=== PATIENT | male | born 1945 | race African-American/Black ===

== ENCOUNTER 2019-07-03 20:51 | Emergency (ER) | payer MEDICARE ==
[~2019-07-03] VITALS: Ht 177.8 cm; Wt 57.0 kg
[2019-07-03] MEDS ORDERED: PREDNISONE 20MG TABLET PO STA (23:16)
[2019-07-03] MEDS ORDERED: IPRATROPIUM BROMIDE (0.02%) 0.5MG/2.5ML NEB HHN STA (23:16)
[2019-07-03] MEDS ORDERED: ALBUTEROL (0.083%) 2.5MG/3ML NEB HHN STA (23:16)
[2019-07-04 00:20] LABS: *BENZODIAZEPINES SCREEN URINE NEGATIVE (NEGATIVE); *COCAINE SCREEN URINE PRESUMTIVE POSITIVE (NEGATIVE)
[2019-07-04 00:21] LABS: *AMPHETAMINES SCREEN URINE NEGATIVE (NEGATIVE); *BARBITURATES SCREEN URINE NEGATIVE (NEGATIVE); CANNABINOID URINE SCREEN NEGATIVE (NEGATIVE); METHADONE URINE SCREEN NEGATIVE (NEGATIVE); OPIATES URINE SCREEN NEGATIVE (NEGATIVE); PHENCYCLIDINE URINE SCREEN NEGATIVE (NEGATIVE)
[2019-07-04 00:23] LABS: BASOPHILS % 1.3 % (0.0-2.0); EOSINOPHILS % 1.1 % (0.0-5.0); HEMATOCRIT. 30.8 % (42.0-52.0); HEMOGLOBIN. 10.1 g/dL (14.0-18.0); LYMPHOCYTES % 17.2 % (20.0-50.0); MEAN CORPUSCULAR HEMOGLOBIN 26.4 pg (28.0-32.0); MEAN CORPUSCULAR VOLUME 80.8 fL (80.0-94.0); MEAN PLATELET VOLUME 8.2 fl (7.4-10.4); MONOCYTES % 11.9 % (2.0-8.0); NEUTROPHILS % 68.5 % (40.0-76.0); PLATELET 240 x1000/uL (130-400); RED BLOOD CELL COUNT 3.81 mill/uL (4.7-6.1); RED CELL DISTRIBUTION WIDTH 21.1 % (11.6-14.6)
[2019-07-04 00:31] LABS: CHLORIDE 106 mEq/L (98-107)
[2019-07-04 07:13] VITALS: BP 147/72
== END 2019-07-04 07:15 | disposition short-term general hospital (02) ==
LOC: ER 20:51 → CANBEDREQ 07-04 08:09
DX: J44.9 Chronic obstructive pulmonary disease, unspecified (principal); I10 Essential (primary) hypertension; F17.210 Nicotine dependence, cigarettes, uncomplicated
CPT/HCPCS: 36415; 71045; 80053; 80305; 83605; 83880; 84484; 85025; 87040; 93005; 94640; 99291; J7512; J7611

== ENCOUNTER 2019-12-28 14:07 | Emergency (ER) | payer MEDICARE ==
[~2019-12-28] VITALS: Ht 177.8 cm; Wt 77.0 kg
[2019-12-28] MEDS ORDERED: ONDANSETRON HCL 4MG/2ML INJ IV STA (15:47)
[2019-12-28] MEDS ORDERED: MORPHINE SULFATE 4 MG/ML CPJ (NOT FOR IM USE) IV STA (15:47)
[2019-12-28] MEDS ORDERED: NITROGLYCERIN OINT 1GM/INCH UDPKT TD ONE (16:00)
[2019-12-28 16:09] LABS: BASOPHILS % 1.8 % (0.0-2.0); EOSINOPHILS % 0.8 % (0.0-5.0); HEMATOCRIT. 30.2 % (42.0-52.0); LYMPHOCYTES % 17.9 % (20.0-50.0); MEAN CORPUSCULAR HEMOGLOBIN 25.5 pg (28.0-32.0); MEAN CORPUSCULAR VOLUME 77.4 fL (80.0-94.0); MEAN PLATELET VOLUME 7.6 fl (7.4-10.4); MONOCYTES % 10.6 % (2.0-8.0); NEUTROPHILS % 68.9 % (40.0-76.0); PLATELET 296 x1000/uL (130-400); RED BLOOD CELL COUNT 3.91 mill/uL (4.7-6.1); RED CELL DISTRIBUTION WIDTH 20.5 % (11.6-14.6)
[2019-12-28 16:10] LABS: CHLORIDE 104 mEq/L (98-107)
[2019-12-28 16:14] LABS: ETHANOL BLOOD < 10 mg/dL
[2019-12-28 19:30] VITALS: BP 144/78
== END 2019-12-28 22:30 | disposition short-term general hospital (02) ==
LOC: ER 14:07 → EDBEDREQ 17:55 → ER 22:30 → ENRESERV 23:50 → CANRESERV 23:50 → CANBEDREQ 12-29 02:05
DX: R07.89 Other chest pain (principal); I11.9 Hypertensive heart disease without heart failure; J44.9 Chronic obstructive pulmonary disease, unspecified; E78.00 Pure hypercholesterolemia, unspecified; I25.2 Old myocardial infarction; Z98.61 Coronary angioplasty status; Z87.891 Personal history of nicotine dependence
CPT/HCPCS: 36415; 71045; 80053; 80320; 83690; 83880; 84484; 85025; 93005; 96374; 96375; 99285; J2270; J2405; G0480

== ENCOUNTER 2020-02-08 11:24 | Inpatient (IN) | payer MEDICAID, MEDICARE ==
[~2020-02-08] VITALS: Ht 177.8 cm; Wt 54.4 kg
[2020-02-08] MEDS ORDERED: NITROGLYCERIN 0.4MG TABLET SL SL PRN (12:00)
[2020-02-08] MEDS ORDERED: ASPIRIN 81MG TABLET PO ONE (12:00)
[2020-02-08 12:15] LABS: BASOPHILS % 1.6 % (0.0-2.0); EOSINOPHILS % 2.1 % (0.0-5.0); HEMATOCRIT. 31.6 % (42.0-52.0); HEMOGLOBIN. 10.5 g/dL (14.0-18.0); LYMPHOCYTES % 25.3 % (20.0-50.0); MEAN CORPUSCULAR HEMOGLOBIN 26.5 pg (28.0-32.0); MEAN CORPUSCULAR VOLUME 79.9 fL (80.0-94.0); MEAN PLATELET VOLUME 7.6 fl (7.4-10.4); PLATELET 270 x1000/uL (130-400); RED BLOOD CELL COUNT 3.95 mill/uL (4.7-6.1); RED CELL DISTRIBUTION WIDTH 19.7 % (11.6-14.6)
[2020-02-08 12:16] LABS: CHLORIDE 106 mEq/L (98-107)
[2020-02-08 12:21] LABS: D-DIMER 0.71 mg/L FEU (<0.50); INR 0.9; PARTIAL THROMBOPLASTIN TIME 29.4 sec (23.4-31.0); PROTHROMBIN TIME 10.3 sec (9.6-11.0)
[2020-02-08] MEDS ORDERED: CLONIDINE 0.1MG TABLET PO PRN (13:15)
[2020-02-08] MEDS ORDERED: ACETAMINOPHEN 325MG TABLET PO PRN (13:15)
[2020-02-08 13:33] LABS: PHOSPHORUS 3.3 mg/dL (2.5-4.9)
[2020-02-08] MEDS ORDERED: IOHEXOL-350 100 ML BOTTLE ONE (13:37)
[2020-02-08 15:00] VITALS: BP_SYST 180; BP_SYST 184; BP_DIAS 80
[2020-02-08 16:00] VITALS: BP 184/80
[2020-02-08] MEDS: ENOXAPARIN 30MG/0.3ML SYR SUBCUT SCH (16:23)
[2020-02-08] MEDS: MORPHINE SULFATE 2 MG/ML CPJ (NOT FOR IM USE) IV PRN (17:01)
[2020-02-08 17:11] LABS: TOTAL IRON BINDING CAPACITY 397 ug/dL (250-450)
[2020-02-08 17:26] VITALS: BP 143/70
[2020-02-08 20:00] VITALS: BP 127/67
[2020-02-09] VITALS: BP 136/65
[2020-02-09 04:00] VITALS: BP 119/61
[2020-02-09 06:47] LABS: CHLORIDE 104 mEq/L (98-107)
[2020-02-09 06:48] LABS: BASOPHILS % 1.6 % (0.0-2.0); EOSINOPHILS % 2.2 % (0.0-5.0); HEMATOCRIT. 29.4 % (42.0-52.0); HEMOGLOBIN. 9.6 g/dL (14.0-18.0); LYMPHOCYTES % 19.1 % (20.0-50.0); MEAN CORPUSCULAR HEMOGLOBIN 25.7 pg (28.0-32.0); MEAN CORPUSCULAR VOLUME 78.6 fL (80.0-94.0); MEAN PLATELET VOLUME 7.7 fl (7.4-10.4); MONOCYTES % 12.5 % (2.0-8.0); NEUTROPHILS % 64.6 % (40.0-76.0); PLATELET 257 x1000/uL (130-400); RED BLOOD CELL COUNT 3.74 mill/uL (4.7-6.1); RED CELL DISTRIBUTION WIDTH 19.4 % (11.6-14.6)
[2020-02-09 07:00] LABS: HDL CHOLESTEROL 57 mg/dL (40-59); LDL CHOLESTEROL 66 mg/dL (5-100)
[2020-02-09 08:00] VITALS: BP 159/72
[2020-02-09 12:00] VITALS: BP 169/71
[2020-02-09] MEDS: CLOPIDOGREL 75MG TABLET PO SCH (12:32)
[2020-02-09] MEDS: ONDANSETRON HCL 4MG/2ML INJ IV PRN (12:45)
[2020-02-09] MEDS: MORPHINE SULFATE 2 MG/ML CPJ (NOT FOR IM USE) IV PRN (12:45)
[2020-02-09] MEDS: DILTIAZEM HCL 30MG TABLET PO SCH ×2 (13:11→21:24)
[2020-02-09 16:00] VITALS: BP 147/63
[2020-02-09] MEDS: ENOXAPARIN 30MG/0.3ML SYR SUBCUT SCH (16:46)
[2020-02-09 20:00] VITALS: BP 122/62
[2020-02-09] MEDS: ATORVASTATIN CALCIUM 20MG TABLET PO SCH (20:54)
[2020-02-09] MEDS: OMEPRAZOLE 20MG CAPSULE EXTENDED RELEASE PO SCH (20:54)
[2020-02-09] MEDS: MORPHINE SULFATE 4 MG/ML CPJ (NOT FOR IM USE) IV PRN (20:55)
[2020-02-10] VITALS: BP 125/61
[2020-02-10 04:00] VITALS: BP 119/58
[2020-02-10] MEDS: DILTIAZEM HCL 30MG TABLET PO SCH ×3 (06:00→21:30)
[2020-02-10] MEDS: OMEPRAZOLE 20MG CAPSULE EXTENDED RELEASE PO SCH (06:08)
[2020-02-10] MEDS: MORPHINE SULFATE 4 MG/ML CPJ (NOT FOR IM USE) IV PRN ×2 (06:13→16:58)
[2020-02-10 07:37] LABS: BASOPHILS % 1.7 % (0.0-2.0); EOSINOPHILS % 2.8 % (0.0-5.0); HEMOGLOBIN. 10.5 g/dL (14.0-18.0); LYMPHOCYTES % 22.9 % (20.0-50.0); MEAN CORPUSCULAR HEMOGLOBIN 25.9 pg (28.0-32.0); MEAN CORPUSCULAR VOLUME 78.5 fL (80.0-94.0); MEAN PLATELET VOLUME 7.6 fl (7.4-10.4); MONOCYTES % 14.2 % (2.0-8.0); NEUTROPHILS % 58.4 % (40.0-76.0); PLATELET 269 x1000/uL (130-400); RED BLOOD CELL COUNT 4.07 mill/uL (4.7-6.1); RED CELL DISTRIBUTION WIDTH 19.1 % (11.6-14.6)
[2020-02-10 07:39] LABS: CHLORIDE 100 mEq/L (98-107)
[2020-02-10 08:00] VITALS: BP 112/63
[2020-02-10] MEDS: CLOPIDOGREL 75MG TABLET PO SCH (09:54)
[2020-02-10 12:00] VITALS: BP 115/58
[2020-02-10 16:00] VITALS: BP 133/59
[2020-02-10] MEDS: ENOXAPARIN 30MG/0.3ML SYR SUBCUT SCH (16:50)
[2020-02-10 20:00] VITALS: BP 122/54
[2020-02-10] MEDS: ATORVASTATIN CALCIUM 20MG TABLET PO SCH (21:30)
[2020-02-11] VITALS: BP 113/58
[2020-02-11 04:00] VITALS: BP 115/53
[2020-02-11] MEDS: DILTIAZEM HCL 30MG TABLET PO SCH ×2 (05:27→13:36)
[2020-02-11 08:00] VITALS: BP 124/54
[2020-02-11] MEDS: CLOPIDOGREL 75MG TABLET PO SCH (08:04)
[2020-02-11] MEDS: MORPHINE SULFATE 4 MG/ML CPJ (NOT FOR IM USE) IV PRN ×2 (08:05→14:58)
[2020-02-11] MEDS: ONDANSETRON HCL 4MG/2ML INJ IV PRN (08:13)
[2020-02-11] MEDS ORDERED: FAMOTIDINE 20MG TABLET PO SCH (09:00)
[2020-02-11 12:00] VITALS: BP 128/49
[2020-02-11] MEDS ORDERED: FAMO20TA8 PO (12:20)
[2020-02-11] MEDS ORDERED: CARSR90 MT ×2 (12:20→16:06)
[2020-02-11] MEDS ORDERED: ATOR20TA PO (12:20)
[2020-02-11] MEDS ORDERED: CLOP75TA15 PO (12:20)
[2020-02-11] MEDS: ENOXAPARIN 30MG/0.3ML SYR SUBCUT SCH (15:00)
[2020-02-11 15:58] VITALS: BP 124/65
[2020-02-11 16:00] VITALS: BP 124/65
[2020-02-11] MEDS ORDERED: ATOR20TA MT (16:06)
[2020-02-11] MEDS ORDERED: CLOP75TA4 MT (16:06)
[2020-02-11] MEDS ORDERED: FAMO20TA8 MT (16:06)
== END 2020-02-11 17:00 | disposition home or self-care (01) | DRG 198 ==
LOC: ER 11:24 → 5WST 12:56 → ENRESERV 13:39
PROVIDERS: ADMIT Internal Medicine; ATTEND Internal Medicine
DX: I25.10 Atherosclerotic heart disease of native coronary artery without angina pectoris (principal); E44.0 Moderate protein-calorie malnutrition; I27.20 Pulmonary hypertension, unspecified; J44.9 Chronic obstructive pulmonary disease, unspecified; F10.10 Alcohol abuse, uncomplicated; I10 Essential (primary) hypertension; I25.2 Old myocardial infarction; Z87.891 Personal history of nicotine dependence; Z95.5 Presence of coronary angioplasty implant and graft; Z79.899 Other long term (current) drug therapy
CPT/HCPCS: 36415; 71045; 71275; 80048; 80053; 80061; 83540; 83550; 83735; 83880; 84100; 84443; 84484; 85025; 85379; 93005; 93306; 93970; 99285; J1650; J2270; J2405; Q9967

== ENCOUNTER 2020-03-15 08:22 | Inpatient (IN) | payer MEDICARE, OTHER ==
[~2020-03-15] VITALS: Ht 177.8 cm; Wt 57.2 kg
[~2020-03-15 08:22] MED LIST: ATOR20TA MT; CARSR90 MT; CLOP75TA4 MT; FAMO20TA8 MT
[2020-03-15 09:31] LABS: CHLORIDE 102 mEq/L (98-107)
[2020-03-15 09:36] LABS: BASOPHILS % 1.8 % (0.0-2.0); EOSINOPHILS % 3.7 % (0.0-5.0); HEMATOCRIT. 31.8 % (42.0-52.0); HEMOGLOBIN. 10.4 g/dL (14.0-18.0); LYMPHOCYTES % 16.2 % (20.0-50.0); MEAN CORPUSCULAR HEMOGLOBIN 25.8 pg (28.0-32.0); MEAN CORPUSCULAR VOLUME 78.6 fL (80.0-94.0); MONOCYTES % 13.5 % (2.0-8.0); NEUTROPHILS % 64.8 % (40.0-76.0); PLATELET 270 x1000/uL (130-400); RED BLOOD CELL COUNT 4.04 mill/uL (4.7-6.1); RED CELL DISTRIBUTION WIDTH 19.2 % (11.6-14.6)
[2020-03-15 09:53] LABS: CLARITY URINE CLEAR (CLEAR); COLOR URINE YELLOW (YELLOW); KETONES URINE NEGATIVE (NEGATIVE); LEUKOCYTE ESTERASE URINE NEGATIVE (NEGATIVE); NITRITE URINE NEGATIVE (NEGATIVE); OCCULT BLOOD URINE NEGATIVE (NEGATIVE); PROTEIN URINE 1+ (NEGATIVE); SPECIFIC GRAVITY URINE 1.022 (1.005-1.030)
[2020-03-15 10:02] LABS: *BARBITURATES SCREEN URINE NEGATIVE (NEGATIVE); *BENZODIAZEPINES SCREEN URINE NEGATIVE (NEGATIVE); CANNABINOID URINE SCREEN NEGATIVE (NEGATIVE); METHADONE URINE SCREEN NEGATIVE (NEGATIVE); OPIATES URINE SCREEN NEGATIVE (NEGATIVE); PHENCYCLIDINE URINE SCREEN NEGATIVE (NEGATIVE)
[2020-03-15 10:03] LABS: *AMPHETAMINES SCREEN URINE NEGATIVE (NEGATIVE); *COCAINE SCREEN URINE PRESUMTIVE POSITIVE (NEGATIVE)
[2020-03-15] MEDS ORDERED: ACETAMINOPHEN 325MG TABLET PO ONE (15:00)
[2020-03-15] MEDS ORDERED: ACETAMINOPHEN 325MG TABLET PO PRN (18:30)
[2020-03-15] MEDS ORDERED: CLONIDINE 0.1MG TABLET PO PRN (18:30)
[2020-03-15 19:55] LABS: PHOSPHORUS 3.6 mg/dL (2.5-4.9)
[2020-03-15] MEDS ORDERED: CEFTRIAXONE 1 G PREMIX 50 ML IV NR (20:30)
[2020-03-15] MEDS ORDERED: AZITHROMYCIN 500 MG in DEXT 5% WATER 250 ML IV NR (21:00)
[2020-03-15] MEDS: ENOXAPARIN 40MG/0.4ML SYR SUBCUT SCH (22:14)
[2020-03-16] MEDS: ONDANSETRON HCL 4MG/2ML INJ IV PRN ×2 (01:06→18:35)
[2020-03-16 02:10] VITALS: BP 144/60
[2020-03-16] MEDS ORDERED: DEXTROSE 50% WATER 50ML SYRINGE IV PRN (03:00)
[2020-03-16 04:00] VITALS: BP 135/67
[2020-03-16] MEDS: BLOOD SUGAR DIAGNOSTIC STRIP TEST SCH ×4 (06:06→21:00)
[2020-03-16] MEDS: INSULIN LISPRO 100 UNITS/ML SUBCUT SCH ×4 (06:07→21:00)
[2020-03-16 08:00] VITALS: BP 106/59
[2020-03-16 10:15] LABS: HEMATOCRIT. 28.5 % (42.0-52.0); HEMOGLOBIN. 9.5 g/dL (14.0-18.0); MEAN CORPUSCULAR HEMOGLOBIN 26.1 pg (28.0-32.0); MEAN CORPUSCULAR VOLUME 77.8 fL (80.0-94.0); MEAN PLATELET VOLUME 7.8 fl (7.4-10.4); PLATELET 240 x1000/uL (130-400); RED BLOOD CELL COUNT 3.66 mill/uL (4.7-6.1); RED CELL DISTRIBUTION WIDTH 19.3 % (11.6-14.6)
[2020-03-16 10:24] LABS: CHLORIDE 104 mEq/L (98-107)
[2020-03-16 10:30] LABS: LDL CHOLESTEROL 57 mg/dL (5-100)
[2020-03-16 10:32] LABS: HDL CHOLESTEROL 67 mg/dL (40-59)
[2020-03-16 11:30] LABS: PLATELET ESTIMATE NORMAL
[2020-03-16 12:00] VITALS: BP 119/62
[2020-03-16 15:32] LABS: TOTAL IRON BINDING CAPACITY 383 ug/dL (250-450)
[2020-03-16 16:00] VITALS: BP 124/63
[2020-03-16] MEDS: PREDNISONE 20MG TABLET PO SCH (16:25)
[2020-03-16] MEDS: ALBUTEROL 6.7GM HFA INHALER ORI SCH ×2 (17:50→22:00)
[2020-03-16] MEDS: AZITHROMYCIN 500 MG in DEXT 5% WATER 250 ML IV SCH (18:07)
[2020-03-16] MEDS: MORPHINE SULFATE 2 MG/ML CPJ (NOT FOR IM USE) IV PRN (18:09)
[2020-03-16] MEDS: CEFTRIAXONE 1 G PREMIX 50 ML IV SCH (18:36)
[2020-03-16 20:00] VITALS: BP 122/66
[2020-03-16] MEDS ORDERED: CEFTRIAXONE 1 G PREMIX 50 ML IV SCH (21:00)
[2020-03-16] MEDS: ENOXAPARIN 40MG/0.4ML SYR SUBCUT SCH (21:37)
[2020-03-16] MEDS ORDERED: AZITHROMYCIN 500 MG in DEXT 5% WATER 250 ML IV SCH (22:00)
[2020-03-17] VITALS: BP 129/72
[2020-03-17] MEDS: ALBUTEROL 6.7GM HFA INHALER ORI SCH ×3 (01:45→16:20)
[2020-03-17 04:00] VITALS: BP 124/58
[2020-03-17 07:34] LABS: BASOPHILS % 1.1 % (0.0-2.0); HEMATOCRIT. 28.4 % (42.0-52.0); HEMOGLOBIN. 9.4 g/dL (14.0-18.0); MEAN CORPUSCULAR HEMOGLOBIN 25.9 pg (28.0-32.0); MEAN CORPUSCULAR VOLUME 78.1 fL (80.0-94.0); MEAN PLATELET VOLUME 8.1 fl (7.4-10.4); MONOCYTES % 6.9 % (2.0-8.0); PLATELET 255 x1000/uL (130-400); RED BLOOD CELL COUNT 3.64 mill/uL (4.7-6.1); RED CELL DISTRIBUTION WIDTH 18.9 % (11.6-14.6)
[2020-03-17] MEDS: BLOOD SUGAR DIAGNOSTIC STRIP TEST SCH ×4 (07:41→21:06)
[2020-03-17 07:50] LABS: CHLORIDE 101 mEq/L (98-107)
[2020-03-17 08:00] VITALS: BP 146/65
[2020-03-17] MEDS: INSULIN LISPRO 100 UNITS/ML SUBCUT SCH ×4 (08:10→21:00)
[2020-03-17 09:01] VITALS: BP 146/65
[2020-03-17] MEDS: PREDNISONE 20MG TABLET PO SCH (09:34)
[2020-03-17] MEDS: MORPHINE SULFATE 2 MG/ML CPJ (NOT FOR IM USE) IV PRN ×2 (09:41→16:56)
[2020-03-17] MEDS: ONDANSETRON HCL 4MG/2ML INJ IV PRN ×3 (09:50→22:56)
[2020-03-17 12:22] VITALS: BP 142/64
[2020-03-17 16:00] VITALS: BP 147/73
[2020-03-17] MEDS: CEFTRIAXONE 1 G PREMIX 50 ML IV SCH (16:19)
[2020-03-17] MEDS: AZITHROMYCIN 500 MG in DEXT 5% WATER 250 ML IV SCH (16:57)
[2020-03-17] MEDS ORDERED: IPRATROPIUM/ALBUTEROL 0.5-3(2.5)MG/3ML NEB HHN PRN (20:30)
[2020-03-17] MEDS: ENOXAPARIN 40MG/0.4ML SYR SUBCUT SCH (21:06)
[2020-03-18] MEDS ORDERED: IPRATROPIUM/ALBUTEROL 0.5-3(2.5)MG/3ML NEB HHN SCH
[2020-03-18 00:04] VITALS: BP 137/70
[2020-03-18 04:00] VITALS: BP 99/52
[2020-03-18] MEDS ORDERED: METOCLOPRAMIDE HCL 10MG/2ML VIAL IV PRN (04:45)
[2020-03-18] MEDS ORDERED: NA PHOS,M-B/NA PHOS,DI-BA ENEMA 118ML PR SCH (04:45)
[2020-03-18] MEDS: BLOOD SUGAR DIAGNOSTIC STRIP TEST SCH ×4 (06:38→21:06)
[2020-03-18] MEDS: INSULIN LISPRO 100 UNITS/ML SUBCUT SCH ×4 (07:50→21:00)
[2020-03-18 08:19] VITALS: BP 127/69
[2020-03-18] MEDS: ONDANSETRON HCL 4MG/2ML INJ IV PRN ×2 (09:19→20:22)
[2020-03-18] MEDS: PREDNISONE 20MG TABLET PO SCH (09:19)
[2020-03-18] MEDS: MORPHINE SULFATE 2 MG/ML CPJ (NOT FOR IM USE) IV PRN ×2 (09:20→20:22)
[2020-03-18 11:53] VITALS: BP 121/64
[2020-03-18 16:06] VITALS: BP 126/64
[2020-03-18] MEDS ORDERED: ALBU18HF2 IH (16:50)
[2020-03-18] MEDS ORDERED: FERR325T6 MT (16:50)
[2020-03-18 20:00] VITALS: BP 130/65
[2020-03-18] MEDS: ENOXAPARIN 40MG/0.4ML SYR SUBCUT SCH (20:22)
[2020-03-18] MEDS ORDERED: IRON SUCROSE COMPLEX 100 MG/5 ML ML IV SCH (21:30)
[2020-03-19] VITALS: BP 144/60
[2020-03-19 04:00] VITALS: BP 150/69
[2020-03-19] MEDS: BLOOD SUGAR DIAGNOSTIC STRIP TEST SCH ×2 (06:42→11:37)
[2020-03-19] MEDS: INSULIN LISPRO 100 UNITS/ML SUBCUT SCH ×2 (06:42→11:38)
[2020-03-19 08:00] VITALS: BP 128/62
[2020-03-19] MEDS: PREDNISONE 20MG TABLET PO SCH (08:34)
[2020-03-19] MEDS: MORPHINE SULFATE 2 MG/ML CPJ (NOT FOR IM USE) IV PRN (10:37)
[2020-03-19 12:00] VITALS: BP 117/63
[2020-03-19 12:16] VITALS: BP 117/63
== END 2020-03-19 15:10 | disposition home or self-care (01) | DRG 816 ==
LOC: ER 08:22 → ENRESERV 23:27 → 7WST 03-16 02:09 → 6WST 03-17 22:53
PROVIDERS: ADMIT Internal Medicine; ATTEND Internal Medicine
DX: T40.5X1A Poisoning by cocaine, accidental (unintentional), initial encounter (principal); J96.01 Acute respiratory failure with hypoxia; E11.65 Type 2 diabetes mellitus with hyperglycemia; I27.21 Secondary pulmonary arterial hypertension; D50.9 Iron deficiency anemia, unspecified; F14.10 Cocaine abuse, uncomplicated; J68.0 Bronchitis and pneumonitis due to chemicals, gases, fumes and vapors; I25.10 Atherosclerotic heart disease of native coronary artery without angina pectoris; I36.1 Nonrheumatic tricuspid (valve) insufficiency; J44.0 Chronic obstructive pulmonary disease with (acute) lower respiratory infection; J44.1 Chronic obstructive pulmonary disease with (acute) exacerbation; I10 Essential (primary) hypertension; F17.210 Nicotine dependence, cigarettes, uncomplicated; D72.819 Decreased white blood cell count, unspecified; J84.89 Other specified interstitial pulmonary diseases; Z91.19 Patient's noncompliance with other medical treatment and regimen; I25.2 Old myocardial infarction; Z79.899 Other long term (current) drug therapy; Y92.89 Other specified places as the place of occurrence of the external cause; Z59.0 Homelessness; Z79.84 Long term (current) use of oral hypoglycemic drugs; Z03.818 Encounter for observation for suspected exposure to other biological agents ruled out
CPT/HCPCS: 36415; 71045; 80048; 80053; 80061; 80305; 81003; 82728; 82962; 83036; 83540; 83550; 83615; 83735; 83880; 84100; 84443; 84484; 85025; 85379; 86140; 93005; 94640; 99285; J0456; J0696; J1650; J1815; J2270; J2405; J2765; J7060; J7512; U0003-CS

== ENCOUNTER 2022-01-11 08:42 | Emergency (ER) | payer MEDICARE, OTHER ==
[~2022-01-11] VITALS: Ht 175.3 cm; Wt 75.0 kg
[~2022-01-11 08:42] MED LIST changes: +ALBU18HF2 IH; -ATOR20TA MT; -CARSR90 MT; -CLOP75TA4 MT; -FAMO20TA8 MT; +FERR325T6 MT
[2022-01-11] MEDS ORDERED: ASPIRIN 81MG TABLET PO ONE (09:30)
[2022-01-11] MEDS ORDERED: LORAZEPAM 2MG/ML CPJ IV ONE (09:30)
[2022-01-11] MEDS: NITROGLYCERIN 0.4MG TABLET SL SL PRN ×3 (09:41→16:08)
[2022-01-11 10:31] LABS: BASOPHILS % 1.1 % (0.0-2.0); EOSINOPHILS % 1.5 % (0.0-5.0); HEMATOCRIT. 33.2 % (42.0-52.0); HEMOGLOBIN. 11.1 g/dL (14.0-18.0); LYMPHOCYTES % 14.5 % (20.0-50.0); MEAN CORPUSCULAR HEMOGLOBIN 29.3 pg (28.0-32.0); MEAN CORPUSCULAR VOLUME 87.6 fL (80.0-94.0); MEAN PLATELET VOLUME 7.8 fl (7.4-10.4); NEUTROPHILS % 72.9 % (40.0-76.0); PLATELET 248 x1000/uL (130-400); RED BLOOD CELL COUNT 3.79 mill/uL (4.7-6.1); RED CELL DISTRIBUTION WIDTH 15.3 % (11.6-14.6)
[2022-01-11 10:39] LABS: CHLORIDE 104 mEq/L (98-107)
[2022-01-11] MEDS ORDERED: MORPHINE SULFATE 4 MG/ML CPJ (NOT FOR IM USE) IV STA (16:10)
[2022-01-11] MEDS ORDERED: ONDANSETRON HCL 4MG/2ML INJ IV STA (16:10)
[2022-01-11 19:36] VITALS: BP 146/78
== END 2022-01-11 19:50 | disposition short-term general hospital (02) ==
LOC: ER 08:58 → CANBEDREQ 16:40 → ER 19:50
DX: R07.89 Other chest pain (principal); R06.02 Shortness of breath; I25.2 Old myocardial infarction; I10 Essential (primary) hypertension; J44.9 Chronic obstructive pulmonary disease, unspecified; I25.10 Atherosclerotic heart disease of native coronary artery without angina pectoris; Z85.46 Personal history of malignant neoplasm of prostate; F14.10 Cocaine abuse, uncomplicated; Z87.891 Personal history of nicotine dependence
CPT/HCPCS: 36415; 71045; 80053; 83880; 84484; 85025; 93005; 96374; 96375; 99285; J2060; J2270; J2405